=== PATIENT | female | born 1935 | race Caucasian/White ===

== ENCOUNTER → 2016-04-21 16:26 | Outpatient (CLI) | payer MEDICARE, BC ==
[2010-12-20 07:23] VITALS: BMI 35.4
== END | disposition home or self-care (01) ==
LOC: D.MAMMO 10:00
DX: Z12.31 Encounter for screening mammogram for malignant neoplasm of breast (principal)

== ENCOUNTER 2018-04-29 08:00 | Outpatient (CLI) | payer MEDICARE, BC ==
[2010-12-20 07:23] VITALS: BMI 35.4
== END 2018-04-29 09:00 | disposition home or self-care (01) ==
LOC: D.MAMMO 08:00
DX: Z12.31 Encounter for screening mammogram for malignant neoplasm of breast (principal)

== ENCOUNTER → 2018-06-18 09:11 | Outpatient (CLI) | payer MEDICARE, BC ==
[2010-12-20 07:23] VITALS: BMI 35.4
--- NOTE | 2018-06-21 09:34 | ST ---
PATIENT:CIRO NESBITT MEDICAL RECORD: [id number] SEX: F LOCATION:[facility] ORDER #: ADMISSION DATE: 06/18/18 AGE OF PATIENT: 83 REFERRING PHYSICIAN: INTERPRETING PHYSICIAN: KAI EATON MD DATE OF SERVICE: 06/18/2018 PROCEDURE: Nuclear stress test. INDICATION: Chest pain, shortness of breath, and hypertension. The patient was exercised on standard Lexiscan protocol with 33 mCi of sestamibi injected at peak stress, 11 mCi used previously for rest images. FINDINGS: Gated SPECT reveals preserved ejection fraction at 66% with good wall motion and thickening and brightening throughout all segments. SPECT imaging Cardiolite was used as myocardial fusion agent. There is homogeneous uptake throughout all segments at rest and stress with no evidence of inducible ischemia or previous infarction. OVERALL IMPRESSION: 1. This is a normal nuclear stress test with no evidence of inducible ischemia or previous infarction. 2. Gated SPECT reveals a preserved ejection fraction at 66%. In this patient with ongoing symptomatology, the current scan does not suggest the presence of hemodynamically significant coronary artery disease. Evaluate noncardiac etiology of chest pain. TRANSINT:[id number] Voice Confirmation ID: [id number] DOCUMENT ID: [id number] KAI EATON MD at 0934 CC: AMERICA LEGER [id number] DICTATION DATE: 06/19/18 1016 RELAYS DRAFTSPERSON: 06/19/18 [id number] [facility] CLI 06/18/18 [id number] [place] [address]
== END | disposition home or self-care (01) ==
LOC: D.HCCARDIO 09:11
PROVIDERS: ATTEND Internal Medicine Interventional Cardiology
DX: R07.9 Chest pain, unspecified (principal)